=== PATIENT | female | born 1970 | race Caucasian/White ===

== ENCOUNTER 2017-04-29 11:15 | Day surgery (SDC) | payer OTHER ==
[2017-04-29] MEDS ORDERED: LR 1,000 ML IV ONE (12:03)
--- NOTE | 2017-04-29 12:30 | PDGENHP ---
History & Physical Chief Complaint: dysphagia, rylie's History of Present Illness: dysphagia worsened Pertinent Past, Social, Family History: fhx - no cc, shx no tobacco, socail etoh , Relevant Physical Exam: cta s1s2,rrr +BS, soft nt a+ox3 Cardiorespiratory Assessment: class 2 bmi high
[2017-04-29] MEDS ORDERED: fentaNYL 100 MCG/2 ML INJ ONE (14:32)
[2017-04-29] MEDS ORDERED: PROPOFOL 200 MG/20 ML VIAL ONE (14:32)
[2017-04-29] MEDS ORDERED: SUCCINYLCHOLINE CHLORIDE*ANESTHESIA ONLY*200 MG/10 ML SYR IVP ONE (14:34)
[2017-04-29] MEDS ORDERED: OXYCODONE/APAP 5/325 TAB PO PRN (14:52)
[2017-04-29] MEDS ORDERED: ONDANSETRON 4 MG/2 ML VIAL IVP PRN (14:52)
[2017-04-29] MEDS ORDERED: NALOXONE HCL 0.4 MG/ML INJ IVP PRN (14:52)
[2017-04-29] MEDS ORDERED: LR 500 ML IV PRN (14:52)
--- NOTE | 2017-04-29 14:52 | PDANEPAE ---
ANE History of Present Illness Patient presents for EGD ANE Past Medical History - Cardiovascular History Hx Hypertension: No Hx Arrhythmias: No Hx Chest Pain: No Hx Coronary Artery / Peripheral Vascular Disease: No Hx CHF / Valvular Disease: No Hx Palpitations: No - Pulmonary History Hx COPD: No Hx Asthma/Reactive Airway Disease: No Hx Recent Upper Respiratory Infection: No Hx Oxygen in Use at Home: No Hx Sleep Apnea: No Sleep Apnea Screening Result - Last Documented: Negative Pulmonary History Comment: PE 2013 - Neurologic History Hx Cerebrovascular Accident: No Hx Seizures: No Hx Dementia: No - Endocrine History Hx Diabetes: No - Renal History Hx Renal Disorders: No - Neurological & Psychiatric Hx Hx Neurological and Psychiatric Disorders: Yes Neurological / Psychiatric History Comment: BIPOLAR - Cancer History Hx Cancer: No - Congenital Disorder History Hx Congenital Disorders: No - GI History Hx Gastrointestinal Disorders: Yes Gastrointestinal History Comment: BARRETTS ESOPHAGUS. ESOPHAGEAL STRICTURES - Other Health History Other Health History: HX OF LOW IRON - Chronic Pain History Chronic Pain: No - Surgical History Prior Surgeries: EGD WITH BX 4 OR 5 TIMES. JANETH. LEEP PROCEDURE ANE Review of Systems - Exercise capacity METS (RN): 4 METS ANE Patient History - Allergies Allergies/Adverse Reactions: No Known Allergies Allergy (Unverified 09/08/10 08:08) - Home Medications Home medications: home medication list seen and reviewed Home Medications: Esomeprazole Mag Trihydrate [Nexium] 40 mg PO DAILY 06/04/14 [Last Taken ] Lamictal DAILY AT 6PM 04/27/17 [Last Taken 04/28/17] Latuda DAILY AT 6PM 04/27/17 [Last Taken 04/28/17] - NPO status NPO Status: no food or drink >8 hours NPO Since - Liquids (Date): 04/28/17 NPO Since - Liquids (Time): 21:25 NPO Since - Solids (Date): 04/28/17 NPO Since - Solids (Time): 19:30 - Anes Hx Anes Hx: no prior problems - Smoking Hx Smoking Status: Never smoked ANE Labs/Vital Signs - Vital Signs Blood Pressure: 133/87 Heart Rate: 68 Respiratory Rate: 16 O2 Sat (%): 92 Height: 162.56 cm Weight: 136.078 kg ANE Physical Exam - Airway Neck exam: FROM Mallampati Score: Class 3 Mouth exam: small mouth opening - Pulmonary Pulmonary: no respiratory distress - Cardiovascular Cardiovascular: regular rate and rhythym - ASA Status ASA Status: II ANE Anesthesia Plan Anesthesia Plan: general endotracheal anesthesia (RBA discussed)
[2017-04-29] MEDS ORDERED: LIDOCAINE 2% 100 MG/5 ML SYR ONE (14:58)
[2017-04-29] MEDS ORDERED: ONDANSETRON 4 MG/2 ML VIAL ONE (14:59)
[2017-04-29] MEDS ORDERED: DEXAMETHASONE 4 MG/ML VIAL ONE (14:59)
--- NOTE | 2017-04-29 15:28 | POSTANESTH ---
Post Anesthetic Evaluation Cardiovascular Status: Normal, Stable Respiratory Status: Normal, Stable Level of Consciousness/Mental Status: Can Participate in Eval Pain Control: Adequate, Prn Tx Ordered Nausea/Vomiting Control: Adequate, Prn Tx Ordered
--- NOTE | 2017-04-29 16:01 | POSTOPPROG ---
Post Op Note Date of Operation: 04/29/17 Surgeon: Fabián Griggs Anesthesiologist: sandy Anesthesia: GET(General Endotracheal) Pre-op Diagnosis: kendall's, dysphagia Post-op Diagnosis: kendall's, stenosis s/p dilation to 45 f Indication: dyphagia kendall's Procedure: egd dilation and bx Findings: stenosis at 20cm, long segment kendall's Inf/Abcess present in the surg proc area at time of surgery?: No EBL: Minimal (few ml) Complications: none immediate
[2017-04-29 16:11] VITALS: TEMP 98.2
[2017-04-29 16:18] VITALS: PULSE 75; RESP 13
[2017-04-29 16:24] VITALS: BP 115/106; O2SAT 89
--- NOTE | 2017-04-29 19:44 | GPN ---
[f rep st] PROCEDURE NOTE DATE OF PROCEDURE: 04/29/2017 INDICATION: History of Davies's, history of esophageal stricture and recurrent dysphagia. PREOPERATIVE DIAGNOSIS: Rule out esophageal stricture, evaluate long segment Davies's. POSTOPERATIVE DIAGNOSIS: 1. Esophageal stricture at 20 cm from the incisor, status post Savary dilation up to 45-Moroccan. 2. Long segment Davies's, status post biopsy. 3. Mild gastritis. 4. Gastric polyps. 5. Normal duodenal. INFORMED CONSENT: I had detailed discussion with the patient regarding the procedure, alternatives, benefits, and risks including bleeding, perforation, infection, risk of medication. Informed consent was signed and witnessed. COMPLICATIONS: None immediate. MEDICATIONS: Used endotracheal intubation as per Dr. Piper from anesthesia. DESCRIPTION OF PROCEDURE: After adequate anesthesia, patient was moved to left lateral decubitus position. A forward-viewing upper endoscope was inserted in the oropharynx and advanced under direct visualization down the esophagus. In the proximal esophagus, approximately 20 cm from the incisors, was a stricture where it has been before. I was able to pass the endoscope beyond the stricture but it did auto dilate with the endoscope. I advanced down her esophagus which had long segment Davies's below the stricture. The stomach had antral gastritis and a number of different polyps. The polyps had previously been biopsied and had been shown to be fundic gland polyps. The pylorus was normal. The duodenal bulb and sweep were normal. The endoscope was withdrawn back into the stomach, and a guidewire was placed into the antrum. The endoscope was removed leaving the guidewire in place. I then passed Savary dilators over the guidewire. I started with an 11 mm, then 12 mm , then 13 mm. I removed the wire and inserted the endoscope to view the area. There was mild dilation present at that upper esophageal stenosis. I advanced the endoscope down into the stomach and we replaced a guidewire. I then passed a 14 mm and 15 mm dilators across the stenosis. I then removed the guidewire and dilators and I replaced my endoscope. The area was dilated more appropriately. I then obtained biopsies from the gastric antrum, distal esophagus and proximal esophagus. The endoscope was then completely withdrawn, confirming the above findings. The patient tolerated the procedure well and was transferred to the recovery room in satisfactory condition. IMPRESSION: 1. Proximal esophageal stenosis at 20 cm from the incisors, status post dilation up to 15 mm or 45-Moroccan. 2. Long segment Davies's. 3. Gastric polyps. 4. Antral gastritis. 5. Normal duodenal. RECOMMENDATIONS: 1. Follow up pathology of all biopsies. 2. Repeat procedure in 8 weeks for repeat dilation to try to get up to at least 18 mm to 20 mm. 3. Continue current acid-reducing medications. 4. Antireflux lifestyle changes. 5. Follow in the office after next procedure. 6. Follow up with primary care physician as scheduled. Thank you for allowing us to participate in this patient's healthcare. Do not hesitate to call me with any questions. /[id number]/MODL MTDD
== END 2017-04-29 16:50 | disposition home or self-care (01) ==
LOC: FSGY 11:15
PROVIDERS: ATTEND Internal Medicine Gastroenterology
PROC: 0D758ZZ Dilation of Esophagus, Via Natural or Artificial Opening Endoscopic (ICD-10-PCS; principal; 2017-04-29 12:45)
PROC: 0DB18ZX Excision of Upper Esophagus, Via Natural or Artificial Opening Endoscopic, Diagnostic (ICD-10-PCS; principal; 2017-04-29 12:45)
PROC: 0DB38ZX Excision of Lower Esophagus, Via Natural or Artificial Opening Endoscopic, Diagnostic (ICD-10-PCS; principal; 2017-04-29 12:45)
PROC: 0DB68ZX Excision of Stomach, Via Natural or Artificial Opening Endoscopic, Diagnostic (ICD-10-PCS; principal; 2017-04-29 12:45)
DX: K22.2 Esophageal obstruction (principal); K22.70 Barrett's esophagus without dysplasia; K31.7 Polyp of stomach and duodenum; K29.70 Gastritis, unspecified, without bleeding
CPT/HCPCS: J0330; J1100; J2001; J2405; J2704; J3010

== ENCOUNTER 2018-06-28 17:29 | Emergency (ER) | payer OTHER ==
[~2018-06-28 17:29] MED LIST: ONDANSETRON 4 MG/2 ML VIAL ONE
--- NOTE | 2018-06-28 17:31 | EDPHY ---
HPI/HX/ROS/PE/MDM Narrative: CHIEF COMPLAINT: Syncope HPI: The patient is a 47 y/o female with a history of a PE arriving via EMS after a syncopal episode today. The patient was running to catch the bus today when she developed a sharp right calf pain. She thought that she pulled a muscle. Shortly after she had a syncopal episode on the bus. She denies hitting her head or any chest pain. When EMS arrived she was awake and alert. As she has a history of the PE, she decided to present to the emergency department because she was concerned that she had another blood clot. Her physicians thought that the prior PE was due to oral control pills. She denies eating any food today. No headache, shortness of breath, abdominal pain, urinary or bowel complaints, numbness, paresthesias. REVIEW OF SYSTEMS: Aside from elements discussed in the HPI, a comprehensive 10 system review of systems is otherwise negative. PMH: PE (2011), acid reflux, cholecystectomy, Barretts esophagus SOCIAL HISTORY: Employed with [employer], lives in [place] PHYSICAL EXAM: General: Patient is tearful, alert, in no acute distress. ENT: Eyes are normal to inspection. ENT inspection normal. Neck: Normal inspection. Full range of motion. Respiratory: No respiratory distress. Breath sounds normal bilaterally. Cardiovascular: Regular rate and rhythm. Strong peripheral pulses. Normal cap refill. Abdomen: The abdomen is nontender to palpation. There are no peritoneal signs. There are normal bowel sounds. Back: Normal to inspection. No tenderness to palpation. Skin: Normal color. No rash. Warm and dry. Extremities: Normal appearance. Full range of motion. Neuro: Oriented x3. Normal motor function. Normal sensory function. ED Course: 1729: I met EMS upon arrival. 1821: EKG was ordered and interpreted by myself. Please see [facility] system for official reading. 1856: Reassessed patient and discussed normal laboratory and EKG findings. I have advised her to follow up with her PCP for unimproved symptoms. Return precautions provided; patient is comfortable with this plan. MDM: This patient presents with syncopal episode that appears to be likely multi- factorial, including failure to eat today, prolonged standing. She does complain of calf pain and has a history of PE, but seems fairly clear that this calf pain occurred while actively running to catch the bus and had previously not been bothering her. I sent a d-dimer to help assess this and this test is normal. I discussed possibility of clot with patient as well as negative d- dimer. I offered US to rule out DVT but patient declines. On re-evaluation at 1900, patient is comfortable, asymptomatic and would like to go home. I think ACS, arrhythmia, PE, CVA are all quite unlikely. - Data Points Laboratory Results: Laboratory Results 06/28/18 18:00 06/28/18 18:00 06/28/18 06/28/18 06/28/18 18:17 18:00 18:00 WBC RBC Hgb Hct MCV MCH MCHC RDW Plt Count MPV Neut % (Auto) Lymph % (Auto) [place] % (Auto) Eos % (Auto) Baso % (Auto) Nucleat RBC Rel Count Absolute Neuts (auto) Absolute Lymphs (auto) Absolute Monos (auto) Absolute Eos (auto) Absolute Basos (auto) Absolute Nucleated RBC Immature Gran % Immature Gran # D-Dimer 0.46 ug/mLFEU ug/mLFEU (0.00-0.50) Sodium 136 mEq/L mEq/L (135-145) Potassium 4.2 mEq/L mEq/L (3.3-5.0) Chloride 100 mEq/L mEq/L (97-110) Carbon Dioxide 24 mEq/l mEq/l (22-31) Anion Gap 12 mEq/L mEq/L (6-14) BUN 10 mg/dL mg/dL (7-23) Creatinine 0.9 mg/dL mg/dL (0.6-1.0) Estimated GFR > 60 Glucose 135 mg/dL H mg/dL (70-100) Calcium 9.3 mg/dL mg/dL (8.5-10.4) POC Troponin I 0.01 ng/mL ng/mL (0.00-0.08) 06/28/18 18:00 WBC 15.18 10^3/uL H 10^3/uL (3.80-9.50) RBC 5.07 10^6/uL 10^6/uL (4.18-5.33) Hgb 13.3 g/dL g/dL (12.6-16.3) Hct 41.9 % % (38.0-47.0) MCV 82.6 fL fL (81.5-99.8) MCH 26.2 pg L pg (27.9-34.1) MCHC 31.7 g/dL L g/dL (32.4-36.7) RDW 14.1 % % (11.5-15.2) Plt Count 431 10^3/uL H 10^3/uL (150-400) MPV 9.3 fL fL (8.7-11.7) Neut % (Auto) 66.0 % % (39.3-74.2) Lymph % (Auto) 26.3 % % (15.0-45.0) [place] % (Auto) 5.0 % % (4.5-13.0) Eos % (Auto) 1.3 % % (0.6-7.6) Baso % (Auto) 1.1 % % (0.3-1.7) Nucleat RBC Rel Count 0.0 % % (0.0-0.2) Absolute Neuts (auto) 10.01 10^3/uL H 10^3/uL (1.70-6.50) Absolute Lymphs (auto) 3.99 10^3/uL H 10^3/uL (1.00-3.00) Absolute Monos (auto) 0.76 10^3/uL 10^3/uL (0.30-0.80) Absolute Eos (auto) 0.20 10^3/uL 10^3/uL (0.03-0.40) Absolute Basos (auto) 0.17 10^3/uL H 10^3/uL (0.02-0.10) Absolute Nucleated RBC 0.00 10^3/uL 10^3/uL (0-0.01) Immature Gran % 0.3 % % (0.0-1.1) Immature Gran # 0.05 10^3/uL 10^3/uL (0.00-0.10) D-Dimer Sodium Potassium Chloride Carbon Dioxide Anion Gap BUN Creatinine Estimated GFR Glucose Calcium POC Troponin I Point of Care Test Results: Chemistry 06/28/18 18:17 POC Troponin I 0.01 ng/mL ng/mL (0.00-0.08) General Initial Vital Signs: Initial Vital Signs Temperature (C) 37.3 C 06/28/18 18:08 Heart Rate 70 06/28/18 18:08 Respiratory Rate 18 06/28/18 18:08 Blood Pressure 135/97 H 06/28/18 18:08 O2 Sat (%) 94 06/28/18 18:08 O2 Delivery Mode Room Air Allergies/Adverse Reactions: No Known Allergies Allergy (Unverified 06/28/18 18:14) Home Medications: Medication Instructions Recorded Ambien 06/28/18 Departure - Departure Disposition: Home, Routine, Self-Care Clinical Impression: Strain of calf muscle Qualifiers: Encounter type: initial encounter Laterality: left Qualified Code(s): S86.812A - Strain of other muscle(s) and tendon(s) at lower leg level, left leg, initial encounter Condition: Good Instructions: Muscle Strain (ED) Additional Instructions: Follow-up with your primary doctor within 72 hours. Return to the Emergency Department for fever, chest pain, shortness of breath, increasing pain or other worsening of condition. Rest, ice, elevation for your strained calf. Referrals: Beba Yu MD [Medical Doctor] - As per Instructions Report Scribed for: Jerzy Haines Report Scribed by: Samia Fields Date of Report: 06/28/18 Time of Report: 17:31 Physician Review and Approval Statement: Portions of this note were transcribed by an ED scribe. I personally performed the history, physical exam, and medical decision making; and confirm the accuracy of the information in the transcribed note.
[2018-06-28] MEDS ORDERED: NS 1,000 ML IV ONE (17:41)
[2018-06-28 18:34] LABS: PLATELET COUNT 431 10^3/uL (150-400)
[2018-06-28 19:07] VITALS: BP 157/99
--- NOTE | 2018-06-28 22:50 | CPEKG ---
Test Reason : OPEN Blood Pressure : / mmHG Vent. Rate : 059 BPM Atrial Rate : 058 BPM P-R Int : 148 ms QRS Dur : 084 ms QT Int : 418 ms P-R-T Axes : -13 017 012 degrees QTc Int : 414 ms Sinus rhythm Low voltage, precordial leads Confirmed by Jerzy Haines ([id number]) on 06/28/2018 10:50:21 PM Referred By: Confirmed By:Jerzy Haines
== END 2018-06-28 19:06 | disposition home or self-care (01) ==
LOC: EDUNIT#
DX: S86.812A Strain of other muscle(s) and tendon(s) at lower leg level, left leg, initial encounter (principal); R55 Syncope and collapse; Z86.711 Personal history of pulmonary embolism; W18.49XA Other slipping, tripping and stumbling without falling, initial encounter; Y93.02 Activity, running
CPT/HCPCS: 84484-PO; J2405